=== PATIENT | male | born 2000 | race Caucasian/White ===

== ENCOUNTER 2024-07-21 09:26 | Outpatient (CLI) | payer OTHER, SELFPAY ==
[2024-07-21 18:48] LABS: Basophils # 0.1 K/mm3 (0-0.2); Eosinophils # 0.2 K/mm3 (0.0-0.4); Eosinophils % 2.9 % (0.1-12.0); Hematocrit 49.3 % (42.0-52.0); Hemoglobin 16.6 g/dL (14.1-18.0); Lymphocytes # 2.5 K/mm3 (0.7-4.5); Lymphocytes % 33.9 % (10-50); Mean Corpuscular HGB Conc 33.8 g/dL (31.8-35.4); Mean Corpuscular Hemoglobin 32.3 pg (27.0-31.2); Mean Corpuscular Volume 95.5 fl (80-94); Mean Platelet Volume 8.6 fl (7.4-10.4); Monocytes # 0.5 K/mm3 (0.1-1.0); Monocytes % 6.3 % (1.7-9.3); Neutrophils # 4.1 K/mm3 (1.8-7.8); Neutrophils % 55.9 % (37.0-80.0); Platelet Count 377 K/mm3 (142-424); Red Blood Count 5.16 M/mm3 (4.60-6.20); Red Cell Distribution Width 13.2 % (11.5-17.5); White Blood Count 7.4 K/mm3 (4.8-10.8)
[2024-07-21 19:26] LABS: Hemoglobin A1C 4.8 % (4.0-6.0)
[2024-07-21 20:20] LABS: Alanine Aminotransferase 33 U/L (12-78); Albumin Level 4.3 g/dl (3.5-5.0); Albumin/Globulin Ratio 1.7 (1.1-1.8); Alkaline Phosphatase 57 U/L (38-126); Anion Gap 13.4 mEq/L (5-15); Aspartate Amino Transferase 37 U/L (17-59); Bilirubin,Total 0.7 mg/dl (0.2-1.3); Blood Urea Nitrogen 12 mg/dl (9-20); Calcium 9.5 mg/dl (8.4-10.2); Carbon Dioxide 23 mmol/L (22.0-30.0); Chloride 106 mmol/L (98-107); Chol/HDL Ratio 3.4 (1-3.5); Cholesterol 195 mg/dl (140-200); Estimated Glomerular Filt Rate 81 ml/min (>60); GFR (African American) 98 ML/MIN (>60); Globulin 2.6 g/dL (1.3-3.2); Glucose 85 mg/dl (74-100); HDL Cholesterol 58 mg/dl (40-60); Potassium 4.4 mmoL/L (3.5-5.1); Sodium 138 mmol/L (136-145); Total Protein,Serum 6.9 g/dl (6.3-8.2); Triglycerides 114 mg/dl (30-150); VLDL Cholesterol 23 mg/dL (0-40)
[2024-07-21 20:32] LABS: Direct LDL Cholesterol 105.31 mg/dL (100-129)
[2024-07-21 20:33] LABS: 25-OH Vitamin D, Total 25.2 ng/mL (30-100)
[2024-07-21 20:53] LABS: Thyroid Stimulating Hormone 1.14 uIU/mL (0.465-4.68)
[2024-07-21 20:57] LABS: Microalbumin/Creatinine Ratio 4.7
[2024-07-21 21:02] LABS: Creatinine,Urine Random 146 mg/dL (Not Estab.)
[2024-07-21 21:12] LABS: Vitamin B12 759 pg/mL (239-931)
== END 2024-07-21 23:59 | disposition home or self-care (01) ==
LOC: LAB.DROPOF 07-22 10:46
PROVIDERS: PCP Nurse Practitioner; Visit Provider Nurse Practitioner
DX: I10 Essential (primary) hypertension (principal); Z13.1 Encounter for screening for diabetes mellitus; Z13.220 Encounter for screening for lipoid disorders
CPT/HCPCS: 80050; 80053; 80061; 82043; 82306; 82570; 82607; 83036; 84443; 85025

== ENCOUNTER → 2024-08-10 06:35 | Outpatient (CLI) | payer OTHER, SELFPAY | LOC: SL 06:36 | PROVIDERS: PCP Nurse Practitioner; Visit Provider Nurse Practitioner | DX: R06.83 Snoring (principal); R51.9 Headache, unspecified; R03.0 Elevated blood-pressure reading, without diagnosis of hypertension; R40.0 Somnolence; R06.81 Apnea, not elsewhere classified | CPT/HCPCS: G0399 ==

== ENCOUNTER → 2024-08-25 20:23 | Outpatient (CLI) | payer OTHER, SELFPAY | LOC: SL 20:25 | PROVIDERS: PCP Nurse Practitioner; Visit Provider Nurse Practitioner | DX: G47.33 Obstructive sleep apnea (adult) (pediatric) (principal); R06.83 Snoring; R40.0 Somnolence | CPT/HCPCS: 95810 ==

== ENCOUNTER 2024-09-28 07:46 | Outpatient (CLI) | payer OTHER, SELFPAY ==
[2024-09-28 08:35] VITALS: PULSE 81; PULSE 84
[2024-09-28] MEDS: ALBUTEROL 0.083% 2.5 MG/3 ML NEB IH (08:35)
== END 2024-09-28 23:59 | disposition home or self-care (01) ==
PROVIDERS: PCP Nurse Practitioner; Visit Provider Specialist
DX: R06.81 Apnea, not elsewhere classified (principal); G47.9 Sleep disorder, unspecified; R40.0 Somnolence; I10 Essential (primary) hypertension
CPT/HCPCS: 94060; 94640; 94726; 94729; J7613

== ENCOUNTER 2024-11-23 16:32 | Outpatient (CLI) | payer OTHER, SELFPAY ==
[2024-11-23 20:14] LABS: 25-OH Vitamin D, Total 58.4 ng/mL (30-100)
--- OUTSIDE RECORDS SUMMARY | 2024-11-24 14:43 | XMS_ITS | Continuity of Care Document ---
Author Name [facility] Organization [facility] Care Team Providers Care District Director Name Role Phone [facility] Unavailable Unavailable Immunizations Combined list of available immunizations from the Department of Defense and Veterans Affairs facilities. Immunization Series Date Given Administered By Site Reaction Lot Number CVX Code Drug Cushion Former Status Comments Source influenza, injectable, quadrivalent- pf 2017 [id number] GlaxoSmith[employer]li ne complet ed influenza , injectabl e, quadrival ent-pf 06/05/18 Given Ambulat ory Pharmac y influenza, injectable, quadrivalent- pf 2017 zzRig ht Arm [id number] 150 GlaxoSmithKli ne complet ed influenza , injectabl e, quadrival ent-pf 06/05/18 Given Ambulat ory Pharmac y hepatitis B pediatric/ado lescent 2017 [id number] GlaxoSmithKli ne complet ed hepatitis B pediatric /adolesce nt 10/11/17 Given Ambulat ory Pharmac y hepatitis B pediatric/ado lescent 2017 [id number] GlaxoSmithKli ne complet ed hepatitis B pediatric /adolesce nt 10/11/17 Given Ambulat ory Pharmac y influenza, injectable, quadrivalent- pf 2016 [id number] 150 GlaxoSmithKli ne complet ed influenza , injectabl e, quadrival ent-pf 06/14/17 Given Ambulat ory Pharmac y influenza, injectable, quadrivalent- pf 2016 [id number] 150 GlaxoSmithKli ne complet ed influenza , injectabl e, quadrival ent-pf 06/14/17 Given Ambulat ory Pharmac y Hep A, ped/adol, 2 dose 2016 [id number] GlaxoSmithKli ne complet ed Hep A, ped/adol, 2 dose 05/07/17 Given Ambulat ory Pharmac y hepatitis B pediatric/ado lescent 2016 [id number] GlaxoSmithKli ne complet ed hepatitis B pediatric /adolesce nt 05/07/17 Given Ambulat ory Pharmac y Hep A, ped/adol, 2 dose 2016 [id number] GlaxoSmithKli ne complet ed Hep A, ped/adol, 2 dose 05/07/17 Given Ambulat ory Pharmac y hepatitis B pediatric/ado lescent 2016 [id number] GlaxoSmithKli ne complet ed hepatitis B pediatric /adolesce nt 05/07/17 Given Ambulat ory Pharmac y hepatitis B pediatric/ado lescent 2015 [id number] 08 GlaxoSmithKli ne complet ed hepatitis B pediatric /adolesce nt 07/19/16 Given Ambulat ory Pharmac y Hep A, ped/adol, 2 dose 2015 [id number] GlaxoSmithKli ne complet ed Hep A, ped/adol, 2 dose 07/19/16 Given Ambulat ory Pharmac y poliovirus vaccine, inactivated 2015 [id number] sanofi pasteur complet ed polioviru s vaccine, inactivat ed 07/19/16 Given Ambulat ory Pharmac y poliovirus vaccine, inactivated 2015 zzRig ht Thigh [id number] 10 sanofi pasteur complet ed polioviru s vaccine, inactivat ed 07/19/16 Given Ambulat ory Pharmac y Hep A, ped/adol, 2 dose 2015 zzRig ht Thigh [id number] 83 GlaxoSmithKli ne complet ed Hep A, ped/adol, 2 dose 07/19/16 Given Ambulat ory Pharmac y hepatitis B pediatric/ado lescent 2015 zzRig ht Thigh [id number] 08 GlaxoSmithKli ne complet ed hepatitis B pediatric /adolesce nt 07/19/16 Given Ambulat ory Pharmac y influenza, seasonal, injectable-pf 2015 [id number] Seqirus complet ed influenza , seasonal, injectabl e-pf 06/15/16 Given Ambulat ory Pharmac y adenovirus vaccine, live 2015 [id number] 143 [employer]eva [employer] ls complet ed adenoviru s vaccine, live 06/15/16 Given Ambulat ory Pharmac y meningococcal oligosacchari de (MCV4O) 2015 [id number] sanofi pasteur complet ed meningoco ccal oligosacc haride (MCV4O) 06/15/16 Given Ambulat ory Pharmac y tetanus, diphtheria, acellular pertu is 2015 [id number] 115 GlaxoSmithKli ne complet ed tetanus, diphtheri a, acellular pertussis 06/15/16 Given Ambulat ory Pharmac y adenovirus vaccine, live 2015 [id number] 1 143 Teva [employer] ls complet ed adenoviru s vaccine, live 06/15/16 Given Ambulat ory Pharmac y meningococcal oligosacchari de (MCV4O) 2015 zzRig ht Arm [id number] 136 sanofi pasteur complet ed meningoco ccal oligosacc haride (MCV4O) 06/15/16 Given Ambulat ory Pharmac y influenza, seasonal, injectable-pf 2015 zzLef t Arm [id number] 140 Seqirus complet ed influenza , seasonal, injectabl e-pf 06/15/16 Given Ambulat ory Pharmac y tetanus, diphtheria, acellular pertu is 2015 zzLef t Arm [id number] 115 GlaxoSmithKli ne complet ed tetanus, diphtheri a, acellular pertussis 06/15/16 Given Ambulat ory Pharmac y tuberculin purified protein derivative 2015 zzLef t Arm [id number] 96 sanofi pasteur complet ed tuberculi n purified protein derivativ e 06/15/16 Given Ambulat ory Pharmac y Procedures Combined list of: 1) Procedures from Department of Veterans Affairs facilities going back up to thelast 18 months, not all VA non-surgical procedures are included; 2) All procedures from the Department of Defense facilities. Procedure Procedure Type Code Date Perfomer Comments Sourc e No data available for this section Ambulatory P harmacy Social History Combined list of available smoking, tobacco, and other social history from Department of Defense and Veterans Affairs facilities. Social History Type Response Date Comment Sourc e Sex Representation Male (finding) 03/25/2020 Un known Organization Sexual Orientation Ambula tory Pharmacy Gender identity Ambulator y Pharmacy Assessment and Plan Combined list of future care activities from Department of Defense and Veterans Affairs facilities (e.g., assessment and plan notes, appointments, orders, and referrals). Additional future care activities may be listed in the Plan of Care section. Result Assessment and Plan Date Source Assessment and Plan No data available for this section 11/24/2024 Ambulatory Pharmacy Functional Status Combined list of recent functional and cognitive assessments recorded at [facility] Defense and [facility] ([facility] Functional [place] Measurement (FIM) Scale: 1 = Total Assistance (Subject = 0% +), 2 = Maximal Assistance (Subject = 25% +), 3 = Moderate Assistance (Subject = 50% +), 4 = Minimal Assistance (Subject = 75% +), 5 = Supervision, 6 = Modified [place] (Device), 7 = Complete [place] (Timely, Safely). Assessment Date/Time Source Assessment Type Assessment Skill Assessment Score Assessment Details No data available for this section
== END 2024-11-23 23:59 | disposition home or self-care (01) ==
LOC: LAB.DROPOF 11-24 14:42
PROVIDERS: PCP Nurse Practitioner; Visit Provider Nurse Practitioner
DX: E55.9 Vitamin D deficiency, unspecified (principal)
CPT/HCPCS: 82306

== ENCOUNTER 2024-12-09 12:21 | Outpatient (CLI) | payer OTHER, SELFPAY ==
--- NOTE | 2024-12-09 12:23 | XR_ITS ---
FINAL REPORT TECHNIQUE: Chest PA & Lateral CLINICAL HISTORY: HSAT and PSG showed nocturnal hypoxemia COMPARISON: None FINDINGS: 2 views of the chest were performed. The heart size is normal. The mediastinum is within normal limits. There is no acute cardiopulmonary process. There are no pleural effusions. There is no pneumothorax. The bony thorax appears intact. IMPRESSION: No acute cardiopulmonary process. Reviewed, Interpreted and Dictated by Aguilar Núñez MD Transcribed by Na Espinoza Authenticated and [facility]
--- OUTSIDE RECORDS SUMMARY | 2024-12-09 12:23 | XMS_ITS | Continuity of Care Document ---
Author Name [facility] Organization [facility] Care Team Providers Care Handwriting Expert Name Role Phone [facility]OD-[facility] Unavailable Unavailable Problems Combined list of problems from Department of Defense and Veterans Affairs facilities. It does not include entries that were removed or entered in error. 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 It does not include entries that were removed or entered in error. Substance Category Reaction Severity Reaction type Status Date Reported Comments Source No Known Allergies Drug allergy (disorder) active 01/26/2020 [facility] Immunizations Combined list of available immunizations from the Department of Defense and Veterans Affairs facilities. Immunization Series Date Given Administered By Site Reaction Lot Number CVX Code Drug Nurse Prn Status Comments Source influenza, injectable, quadrivalent- pf 2017 [id number] 150 GlaxoSmithKli ne complet ed influenza , injectabl e, quadrival ent-pf 06/05/18 Given Ambulat ory Pharmac y influenza, injectable, quadrivalent- pf 2017 zzRig ht Arm [id number] 150 GlaxoSmithKli ne complet ed influenza , injectabl e, quadrival ent-pf 06/05/18 Given Ambulat ory Pharmac y Influenza, injectable, quadrivalent, preservative free 1 2017 UGO ARREAGA [id number] 150 SmithKline (SKB) complet ed Influenza , injectabl e, quadrival ent, preservat mike free [facility] hepatitis B pediatric/ado lescent 2017 [id number] 08 GlaxoSmithKli ne complet ed hepatitis B pediatric /adolesce nt 10/11/17 Given Ambulat ory Pharmac y hepatitis B pediatric/ado lescent 2017 [id number] 08 GlaxoSmithKli ne complet ed hepatitis B pediatric /adolesce nt 10/11/17 Given Ambulat ory Pharmac y hepatitis B vaccine, pediatric or pediatric/ado lescent dosage 3 2017 [id number] 08 JaspreetKline (SKB) complet ed hepatitis B vaccine, pediatric or pediatric /adolesce nt dosage DoD influenza, injectable, quadrivalent- pf 2016 [id number] 150 GlaxoSmithKli ne complet ed influenza , injectabl e, quadrival ent-pf 06/14/17 Given Ambulat ory Pharmac y influenza, injectable, quadrivalent- pf 2016 [id number] 150 GlaxoSmithKli ne complet ed influenza , injectabl e, quadrival ent-pf 06/14/17 Given Ambulat ory Pharmac y Influenza, injectable, quadrivalent, preservative free 0 2016 [id number] 150 SmithKline (SKB) complet ed Influenza , injectabl e, quadrival ent, preservat mike free DoD Hep A, ped/adol, 2 dose 2016 [id number] [...] Given Ambulat ory Pharmac y hepatitis B vaccine, pediatric or pediatric/ado lescent dosage 2 2016 [id number] 08 SmithKline (SKScar) complet ed hepatitis B vaccine, pediatric or pediatric /adolesce nt dosage DoD hepatitis A vaccine, pediatric/ado lescent dosage, 2 dose schedule 2 2016 [id number] 83 SmithKline (SK) complet ed hepatitis A vaccine, pediatric /adolesce nt dosage, 2 dose schedule DoD varicella virus vaccine 0 2016 21 () Not Given varicella virus vaccine DoD measles and rubella virus vaccine 0 2015 04 () Not Given measles and rubella virus vaccine DoD varicella virus vaccine 0 2015 21 () Not Given varicella virus vaccine DoD hepatitis B pediatric/ado lescent 2015 [id number] 08 GlaxoSmithKli ne complet ed hepatitis B pediatric /adolesce nt 07/19/16 Given Ambulat ory Pharmac y Hep A, ped/adol, 2 dose 2015 [id number] 83 GlaxoSmithKli ne complet ed Hep A, ped/adol, 2 dose 07/19/16 Given Ambulat ory Pharmac y poliovirus vaccine, inactivated 2015 [id number] 10 sanofi pasteur complet ed polioviru s vaccine, inactivat ed 07/19/16 Given Ambulat ory Pharmac y poliovirus vaccine, inactivated 2015 zzRig ht Thigh [id number] 10 sanofi pasteur complet ed polioviru s [...] nt 07/19/16 Given Ambulat ory Pharmac y hepatitis B vaccine, pediatric or pediatric/ado lescent dosage 1 2015 MIK DEL CASTILLO [id number] 08 SmithKline (SKB) complet ed hepatitis B vaccine, pediatric or pediatric /adolesce nt dosage DoD poliovirus vaccine, inactivated 1 2015 MIK DEL CASTILLO [id number] 10 Sanofi Pasteur (PMC) complet ed polioviru s vaccine, inactivat ed DoD hepatitis A vaccine, pediatric/ado lescent dosage, 2 dose schedule 1 2015 MIK DEL CASTILLO [id number] 83 SmithKline (SKB) complet ed hepatitis A vaccine, pediatric /adolesce nt dosage, 2 dose schedule DoD influenza, seasonal, injectable-pf 2015 [id number] 140 Seqirus complet ed influenza , seasonal, injectabl e-pf 06/15/16 Given Ambulat ory Pharmac y adenovirus vaccine, live 2015 [id number] 1 143 Teva Pharmaceutica ls complet ed adenoviru s vaccine, live 06/15/16 Given Ambulat ory Pharmac y meningococcal oligosacchari de (MCV4O) 2015 [id number] 136 sanofi pasteur complet ed meningoco ccal oligosacc haride (MCV4O) 06/15/16 Given Ambulat ory Pharmac y tetanus, diphtheria, acellular pertu is 2015 [id number] 115 GlaxoSmithKli ne complet ed tetanus, diphtheri a, acellular pertussis 06/15/16 Given Ambulat ory Pharmac y adenovirus vaccine, live 2015 [id number] 1 143 Teva Pharmaceutica ls complet ed adenoviru s vaccine, live 06/15/16 Given Ambulat ory Pharmac y meningococcal oligosacchari de (MCV4O) 2015 zzRig ht Arm [id number] 136 sanofi pasteur complet ed meningoco ccal oligosacc haride (MCV4O) 06/15/16 Given Ambulat ory Pharmac y influenza, seasonal, injectable-pf 2015 zzLef t Arm [id number] 140 Seqirus complet ed influenza , seasonal, injectabl e-pf 06/15/16 Given Ambulat ory Pharmac y tetanus, diphtheria, acellular pertu is 2015 zzLef t Arm G522H 115 GlaxoSmithKli ne complet ed tetanus, diphtheri a, acellular pertussis 06/15/16 Given Ambulat ory Pharmac y tuberculin purified protein derivative 2015 zzLef t Arm [id number] 96 sanofi pasteur complet ed tuberculi n purified protein derivativ e 06/15/16 Given Ambulat ory Pharmac y tuberculin skin test; purified protein derivative solution, intradermal 1 2015 Unknown, Provider [id number] 96 Sanofi Pasteur (PMC) complet ed tuberculi n skin test; purified protein derivativ e solution, intraderm al DoD tetanus toxoid, reduced diphtheria toxoid, and acellular pertu is vaccine, adsorbed 1 2015 Unknown, Provider [id number] 115 [facility] (SKB) complet ed tetanus toxoid, reduced diphtheri a toxoid, and acellular pertussis vaccine, adsorbed DoD meningococcal oligosacchari de (groups A, C, Y and W-135) diphtheria toxoid conjugate vaccine (MCV4O) 1 2015 Unknown, Provider [id number] 136 Sanofi Pasteur (PMC) complet ed meningoco ccal oligosacc haride (groups A, C, Y and W-135) diphtheri a toxoid conjugate vaccine (MCV4O) DoD Influenza, seasonal, injectable, preservative free 1 2015 Unknown, Provider [id number] 140 Seqirus (SEQ) complet ed Influenza , seasonal, injectabl e, preservat mike free DoD Adenovirus, type 4 and type 7, live, oral 1 2015 Unknown, Provider [id number] 143 FilmLoop (BRR) complet ed Adenoviru s, type 4 and type 7, live, oral DoD Encounters Combined list of: 1) Encounters from Department of Veterans Affairs facilities going backup to the last 18 months, not all VA inpatient encounters are included; 2) Encounters from the Department of Defense facilities going backup to 280 months. Location Location Details Encounter Type Encounter Number Reason For Visit Attending Provider ADM Date DC Date Status Disposition Source [facility] Rosalina simon[facility] OUTPATIENT [id number] PAPITO SYED 06/13 Released w/o Limitations [facility] Luiz frank([facility] Optomet ry Clinic) [facility] Rosalina simon[facility] Hearing Conservat ion) OUTPATIENT [id number] [employer] 06/13 Released w/o Limitations [facility] Luiz frank([facility] Hearing Conserv ation) [facility] Rosalina simon[facility] Recruit Medical Process) OUTPATIENT [id number] INITIAL INPROCE SAMMY CASTRO 06/18 Released w/o Limitations [facility] Luiz frank([facility] Rec[facility] Medical Process ) [facility] Rosalina n([facility] Med Dispo) OUTPATIENT [id number] Notes Entered by: SANGITA BILLS RA 21 Jun 2016 0903 ------- ------- ------- ------- -- CTT/BUM ED WAIVER REQUEST SHRUTHI ARZOLA 06/21 Released with Work/Duty Limitations [facility] Luiz frank([facility] Med Dispo) [facility] Rosalina simon([facility] Med Dispo) OUTPATIENT [id number] Notes Entered by: SANGITA BILLS RA 29 Jun 2016 1435 ------- ------- ------- ------- -- SHRUTHI OSWALD 06/29 Released w/o Limitations [facility] Luiz frank([facility] Med Dispo) [facility] Rosalina simon([facility] Recruit Medical Process) OUTPATIENT [id number] 2ND VISIT FOR INPROCE TAMMY SHOEMAKER 07/19 Released w/o Limitations [facility] Luiz frank([facility] Rec[employer] Medical Process ) [facility](13 [facility]) OUTPATIENT [id number] Notes Entered by: BLAINE GARCIA 06 May 2017 1329 ------- ------- ------- ------- -- New check in SIMONE Sher 05/06 Released w/o Limitations [facility](1 3 ABC [facility]) [facility](13 ABC Hearing Conservat ion) OUTPATIENT [id number] ANNUAL MALIHA LYONS 07/02 Released w/o Limitations [facility](1 3 ABC Hearing Conserv ation) [facility](13 ABC [facility]) OUTPATIENT [id number] Notes Entered by: GARY OLIVARES 16 Jul 2017 0957 ------- ------- ------- ------- -- SHRUTHI BOONE 07/16 Released w/o Limitations [facility](1 3 ABC [facility]) [facility](CP Optometry ) OUTPATIENT [id number] [facility] DILCIA COLEY 01/28 Released w/o Limitations [facility](C P Optomet ry) [facility](13 ABC FP MHP Green Team) OUTPATIENT [id number] Notes Entered by: ANNIE TORRES 03 Feb 2018 0936 ------- ------- ------- ------- -- EVOC EKG ANNIE TORRESEL 02/03 Released w/o Limitations [facility](1 3 ABC FP MHP Green Team) [facility](CP Optometry ) OUTPATIENT [id number] spec dispens e VICKIE VIRGEN Luz Marina 02/07 Released w/o Limitations [facility](C P Optomet ry) [facility](13 ABC FP MHP Green Team) OUTPATIENT [id number] EVOC KATELYNN Churchill 02/14 Released w/o Limitations [facility](1 3 ABC FP MHP Green Team) [facility](CP Comm Imms/Flu Clinic) OUTPATIENT [id number] 5 flu vac UGO ARREAGA Cammy 06/06 Released w/o Limitations [facility](C P Comm Imms/Fl u Clinic) [facility](13 ABC FP MHP Green Team) OUTPATIENT [id number] 3 POSSBLE CONTACT WITH KATELYNN MOELLER 07/28 Released w/o Limitations [facility](1 3 ABC FP MHP Green Team) [facility](13 ABC FP MHP Green Team) TELE CONSULT [id number] Notes Entered by: TANNA NASH 23 Sep 2018 1440 ------- ------- ------- ------- -- PHA FAZAL REY 09/23 [facility](1 3 ABC FP MHP Green Team) [facility](13 ABC Hearing Conservat ion) OUTPATIENT [id number] ANNUAL MALIHA LYONS 10/14 Released w/o Limitations [facility](1 3 ABC Hearing Conserv ation) [facility](13 ABC Smart/Spo rts Medicine) OUTPATIENT [id number] Notes Entered by: Jose Raul LANDA 25 Mar 2019 0806 ------- ------- ------- ------- -- ipu/1st visit/ right ankle/ 13 NNEKA Santamaria 03/25 Released w/o Limitations [facility](1 3 ABC Smart/S ports Medicin e) [facility](13 ABC Smart/Spo rts Medicine) OUTPATIENT [id number] Notes Entered by: MARCO ALLISON 26 Mar 2019 0810 ------- ------- ------- ------- -- ipu/ second visit/ r / SOPHIE Kay 03/26 Released w/o Limitations [facility](1 3 ABC Smart/S ports Medicin e) [facility](CP Optometry ) OUTPATIENT [id number] 3 ree [phone] DILCIA COLEY 01/25 Released w/o Limitations [facility](C P Optomet ry) [facility](13 ABC FP MHP Green Team) TELE CONSULT [id number] Notes Entered by: JAMEL SIMONS 18 Feb 2020 1056 ------- ------- ------- ------- -- HIV JAMEL SIMONS 02/17 Released to Self Care [facility](1 3 ABC FP MHP Green Team) [facility](13 ABC Hearing Conservat ion) OUTPATIENT [id number] MALIHA PHILIP 02/23 Released w/o Limitations [facility](1 3 ABC Hearing Conserv ation) [facility](13 ABC FP MHP Green Team) OUTPATIENT [id number] 7 VIRTUAL FINAL BECCA YADAV 02/23 Released w/o Limitations [facility](1 3 ABC FP MHP Green Team) Procedures Combined list of: 1) Procedures from Department of Veterans Affairs facilities going back up to thelast 18 months, not all VA non-surgical procedures are included; 2) All procedures from the Department of Defense facilities. Procedure Procedure Type Code Date Perfomer Comments Sourc e No data available for this section [facility] Pharmacy IMMUNIZATION ADMINISTRATION (INCLUDES PERCUTANEOUS, INTRADERMAL, SUBCUTANEOUS, OR INTRAMUSCULAR INJECTIONS); EACH ADDITIONAL VACCINE (SINGLE OR COMBINATION VACCINE/TOXOID) 016 [facility] COLLECTION OF VENOUS BLOOD BY VENIPUNCTURE 016 [facility] PHYS/OTH QUALIFIED HEALTH FOOD BEVERAGE ATTENDANT QUALIFIED,EDUCATION ,TRAIN,LICENSURE/RE GULATION (WHEN APPLICABLE) EDUC SER RENDERED TO PATS IN A GRP SETTING (EG,,OBESIT Y,OR DIABETIC INSTRUCT) 016 DoD FITTING OF SPECTACLES, EXCEPT FOR APHAKIA; MONOFOCAL 016 DoD WAIVER SERVICES; NOT OTHERWISE SPECIFIED (NOS) DoD PURE TONE AUDIOMETRY (THRESHOLD), AUTOMATED; AIR ONLY DoD FITTING OF SPECTACLES, EXCEPT FOR APHAKIA; MONOFOCAL 020 DoD APPLICATION OF A MODALITY TO 1 OR MORE AREAS; HOT OR COLD PACKS 019 DoD APPLICATION OF A MODALITY TO 1 OR MORE AREAS; HOT OR COLD PACKS 019 DoD PURE TONE AUDIOMETRY (THRESHOLD), AUTOMATED; AIR ONLY 019 DoD IMMUNIZATION ADMINISTRATION (INCLUDES PERCUTANEOUS, INTRADERMAL, SUBCUTANEOUS, OR INTRAMUSCULAR INJECTIONS); 1 VACCINE (SINGLE OR COMBINATION VACCINE/TOXOID) DoD FITTING OF SPECTACLES, EXCEPT FOR APHAKIA; MONOFOCAL 018 DoD FITTING OF SPECTACLES, EXCEPT FOR APHAKIA; MONOFOCAL 018 DoD ADMINISTRATION OF PATIENT-FOCUSED HEALTH RISK ASSESSMENT INSTRUMENT (EG, HEALTH HAZARD APPRAISAL) WITH SCORING AND DOCUMENTATION, PER STANDARDIZED INSTRUMENT 017 DoD PURE TONE AUDIOMETRY (THRESHOLD), AUTOMATED; AIR ONLY 017 DoD Threshold Audiogram (Pure Tone) Automated Threshold Audiogram (Pure Tone) Automated [id number] 019 MALIHA LYONS [facility] Patient education, not otherwise cla ified, non-physician provider, group, per se ion 019 MALIHA LYONS DoD Immunization Administration One Vaccine Immunization Administration One Vaccine 11378 018 UGO ARREAGA DoD Spectacles Services Fitting Monofocals (Not For Aphakia) Spectacles Services Fitting Monofocals (Not For Aphakia) 95186 018 VICKIE VIRGEN DoD [employer] Fitting Monofocals (Not For Aphakia) Spectacles Services Fitting Monofocals (Not For Aphakia) 97233 018 COLETTDILCIA OVALLE Determination Of Refractive State Determination Of Refractive State 85000 018 JHON NEAL, DILCIA Burleson Ophthalmological New Patient Start Comprehensive Care Ophthalmological New Patient Start Comprehensive Care 53401 018 JHON NEAL, DILCIA Burleson Threshold Audiogram (Pure Tone) Automated Threshold Audiogram (Pure Tone) Automated 0208T MALIHA LYONS Patient education, not otherwise cla ified, non-physician provider, group, per se ion 017 MALIHA LYONS Hepatitis B Vaccine (Active); To 11 Years Hepatitis B Vaccine (Active); [place] To 11 Years 73342 MIK CABAN Hep B, adolescent or pediatric; Series #: 1; .5 mL; IM; Right Thigh; Mfg: SmithKline; Lot: [id number]. [facility] Vaccines Viral Polio, Inactivated (Salk) Vaccines Viral Polio, Inactivated (Salk) 16232 016 MIK CABAN IPV; Series #: 1; .5 mL; IM; Right Thigh; Mfg: Sanofi Pasteur; Lot: [id number]. [facility] Hep A Vac Ped/Adol Dosage (Intramusc Use) 2 Dose Schedule Hep A Vac Ped/Adol Dosage (Intramusc Use) 2 Dose Schedule 30587 CRISTIN CABANA [facility] Hep A ped/adol, 2 dose; Series #: 1; .5 mL; IM; Right Thigh; Mfg: SmithCataceline; Lot: [id number]. [facility] Immunization Administration One Vaccine Immunization Administration One Vaccine 95736 MIK CABAN [facility] Immunization Administration Each Additional Vaccine Immunization Administration Each Additional Vaccine 67278 MIK CABAN [facility] Venipuncture Venipuncture [address] Supervised Injection Intramuscular Antibiotic Supervised Injection Intramuscular Antibiotic 30818 CORIE GONZALEZ Influenza Split Virus Vacc Age 3+ Years IM Preservative Free CORIE GONZALEZ Immunization Admin Intranasal / Oral Each Additional Vaccine Immunization Admin Intranasal / Oral Each Additional Vaccine 05201 016 CORIE MAGANA [facility] Vaccines Adenovirus Type 4 Live, For Oral Use Vaccines Adenovirus Type 4 Live, For Oral Use 31690 016 CORIE MAGANA Vaccines Adenovirus Type 7 Live, For Oral Use Vaccines Adenovirus Type 7 Live, For Oral Use 62793 016 CORIE MAGANA [facility] Tdap Vaccine Tdap Vaccine 87367 CORIE MAGANA [facility] Immunization Administration One Vaccine Immunization Administration One Vaccine 98396 CORIE MAGANA [facility] Immunization Admin By Intranasal / Oral Route One Vaccine Immunization Admin By Intranasal / Oral Route One Vaccine 63745 CORIE MAGANA [facility] Immunization Administration Each Additional Vaccine Immunization Administration Each Additional Vaccine 69536 CORIE MAGANA [facility] Skin Test Anergy Tuberculin Intradermal Skin Test Anergy Tuberculin Intradermal 08387 CORIE MAGANA [facility] -Supervised Group Educational Services -Supervised Group Educational Services [phone] [employer] [facility] Audiometry Group Testing Audiometry Group Testing 56451 [employer] [facility] Spectacles Services Fitting Monofocals (Not For Aphakia) Spectacles Services Fitting Monofocals (Not For Aphakia) 34954 016 [facility] Ophthalmological New Patient Start Comprehensive Care Ophthalmological New Patient Start Comprehensive Care [phone] [facility] Determination Of Refractive State Determination Of Refractive State [phone] [facility] Physical Therapy: ___ Se ion Segments, 15 Minutes Each Physical Therapy: ___ Session Segments, 15 Minutes Each 50630 NNEKA BARBOSA Therex x 30 min to R ankle. [facility] Physical Therapy Mobilization Joint Physical Therapy Mobilization Joint 26980 NNEKA BARBOSA x 8 min Manual Lymphatic Drainage R ankle. [facility] Modalities Cryotherapy Cold Packs Modalities Cryotherapy Cold Packs 09903 NNEKA BARBOSA x 15 min to R ankle. [facility] Physical Therapy: ___ Se ion Segments, 15 Minutes Each Physical Therapy: ___ Session Segments, 15 Minutes Each 74869 SOPHIE ALCANTARA 35min DoD Modalities Cryotherapy Cold Packs Modalities Cryotherapy Cold Packs 04815 SOPHIE ALCANTARA 20 min DoD Ophthalmological Prior Patient Start Comprehensive Care Ophthalmological Prior Patient Start Comprehensive Care [address] [facility], DILCIA R [facility] Determination Of Refractive State Determination Of Refractive State [address]017 [facility], DILCIA R [facility] Spectacles Services Fitting Monofocals (Not For Aphakia) Spectacles Services Fitting Monofocals (Not For Aphakia) [address]262 [facility], DILCIA R [facility] Patient education, not otherwise cla ified, non-physician provider, group, per se ion MALIHA LYONS [facility] Threshold Audiogram (Pure Tone) Automated Threshold Audiogram (Pure Tone) Automated 0208T MALIHA LYONS [facility] Waiver services; not otherwise specified (NOS) BECCA HAYES [facility] Social History Combined list of available smoking, tobacco, and other social history from Department of Defense and Veterans Affairs facilities. Social History Type Response Date Comment Sour e Sex Representation Male (finding) 03/25/2020 Un known Organization Sexual Orientation Ambula tory Pharmacy Gender identity Ambulator y Pharmacy This section is an empty social history section. [facility] Assessment and Plan Combined list of future care activities from Department of Defense and Veterans Affairs facilities (e.g., assessment and plan notes, appointments, orders, and referrals). Additional future care activities may be listed in the Plan of Care section. Result Assessment and Plan Date Source Assessment and Plan No data available for this section 12/09/2024 Ambulatory Pharmacy Functional Status Combined list of recent functional and cognitive assessments recorded at Department of Defense and Veterans Affairs ([facility]).[facility] Functional Donley Measurement (FIM) Scale: 1 = Total Assistance (Subject = 0% +), 2 = Maximal Assistance (Subject = 25% +), 3 = Moderate Assistance (Subject = 50% +), 4 = Minimal Assistance (Subject = 75% +), 5 = Supervision, 6 = Modified Donley (Device), 7 = Complete Donley (Timely, Safely). Assessment Date/Time Source Assessment Type Assessment Skill Assessment Score Assessment Details No data available for this section
== END 2024-12-09 23:59 | disposition home or self-care (01) ==
LOC: RAD 12:22
PROVIDERS: PCP Nurse Practitioner; Visit Provider Specialist
DX: G47.9 Sleep disorder, unspecified (principal); G47.34 Idiopathic sleep related nonobstructive alveolar hypoventilation; R40.0 Somnolence; I10 Essential (primary) hypertension
CPT/HCPCS: 71046

== ENCOUNTER 2025-02-23 12:04 | Outpatient (CLI) | payer OTHER, SELFPAY ==
[2025-02-23 15:38] LABS: Alanine Aminotransferase 24 U/L (12-78); Albumin Level 4.5 g/dl (3.5-5.0); Albumin/Globulin Ratio 1.6 (1.1-1.8); Alkaline Phosphatase 54 U/L (38-126); Anion Gap 16.9 mEq/L (5-15); Aspartate Amino Transferase 47 U/L (17-59); Bilirubin,Total 0.8 mg/dl (0.2-1.3); Blood Urea Nitrogen 12 mg/dl (9-20); Calcium 9.7 mg/dl (8.4-10.2); Carbon Dioxide 23 mmol/L (22.0-30.0); Chloride 102 mmol/L (98-107); Creatinine,Serum 0.90 mg/dl (0.66-1.25); Estimated Glomerular Filt Rate 101 ml/min (>60); GFR (African American) 122 ML/MIN (>60); Globulin 2.9 g/dL (1.3-3.2); Glucose 125 mg/dl (74-100); Potassium 3.9 mmoL/L (3.5-5.1); Sodium 138 mmol/L (136-145); Total Protein,Serum 7.4 g/dl (6.3-8.2)
[2025-02-23 15:50] LABS: 25-OH Vitamin D, Total 76.2 ng/mL (30-100)
--- OUTSIDE RECORDS SUMMARY | 2025-02-24 10:27 | XMS_ITS | Continuity of Care Document ---
Author Name [facility] Organization [facility] Care Team Providers Care Child And Family Therapist Name Role Phone [facility] Unavailable Unavailable Problems Combined list of problems [...] Known Allergies Drug allergy (disorder) active 01/26/2020 [facility] Immunizations Combined list of available immunizations from the Department of Defense and Veterans Affairs facilities. Immunization Series Date Given Administered By Site Reaction Lot Number CVX Code Drug Tosser Status Comments Source influenza, injectable, quadrivalent- pf [...] injectabl e, quadrival ent, preservat mike free [facility] hepatitis B pediatric/ado lescent 2017 [id number] [...] ory Pharmac y poliovirus vaccine, inactivated 2015 [id number] 10 sanofi pasteur complet ed polioviru s vaccine, inactivat ed 07/19/16 Given Ambulat ory Pharmac y poliovirus vaccine, inactivated 2015 zzRig ht Thigh [id number] 10 sanofi pasteur complet ed polioviru s [...] vaccine, inactivated 1 2015 MIK DEL CASTILLO [id number] 10 Sanofi Pasteur (PMC) complet ed polioviru s vaccine, inactivat ed DoD hepatitis A vaccine, pediatric/ado lescent dosage, 2 dose schedule 1 2015 MIK DEL CASTILLO [id number] SmithKline (SKB) complet ed hepatitis A vaccine, pediatric /adolesce nt dosage, 2 dose schedule DoD influenza, seasonal, injectable-pf 2015 [id number] 140 Seqirus complet ed influenza , seasonal, injectabl e-pf 06/15/16 Given Ambulat ory Pharmac y adenovirus vaccine, live 2015 [id number] 1 143 Teva Pharmaceutica ls complet ed adenoviru s vaccine, live 06/15/16 Given Ambulat ory Pharmac y meningococcal oligosacchari de (MCV4O) 2015 [id number] 136 sanofi pasteur complet ed meningoco ccal oligosacc haride (MCV4O) 06/15/16 Given Ambulat ory Pharmac y tetanus, diphtheria, acellular pertu is 2015 [id number] 115 GlaxoSmithKli ne complet ed tetanus, diphtheri a, acellular pertussis 06/15/16 Given Ambulat ory Pharmac y adenovirus vaccine, live 2015 [id number] 1 143 Teva Pharmaceutica ls complet ed adenoviru s vaccine, live 06/15/16 Given Ambulat ory Pharmac y meningococcal oligosacchari de (MCV4O) 2015 zzRig ht Arm [id number] 136 sanofi pasteur complet ed meningoco ccal oligosacc haride (MCV4O) 06/15/16 Given Ambulat ory Pharmac y influenza, seasonal, injectable-pf 2015 zzLef t Arm [id number] 140 Seqirus complet ed influenza , seasonal, injectabl e-pf 06/15/16 Given Ambulat ory Pharmac y tetanus, diphtheria, acellular pertu is 2015 zzLef t Arm [id number] 115 GlaxoSmithKli ne complet ed tetanus, diphtheri a, acellular pertussis 06/15/16 Given Ambulat ory Pharmac y tuberculin purified protein derivative 2015 zzLef t Arm [id number] 96 sanofi pasteur complet ed tuberculi n purified protein derivativ e 06/15/16 Given Ambulat ory Pharmac y tuberculin skin test; purified protein derivative solution, intradermal 1 2015 Unknown, Provider [id number] 96 Sanofi Pasteur (PMC) complet ed tuberculi n skin test; purified protein derivativ e solution, intraderm al DoD tetanus toxoid, reduced diphtheria toxoid, and acellular pertu is vaccine, adsorbed 1 2015 Unknown, Provider [id number] 115 [facility] (SKB) complet ed tetanus toxoid, reduced diphtheri a toxoid, and acellular pertussis vaccine, adsorbed DoD meningococcal oligosacchari de (groups A, C, Y and W-135) diphtheria toxoid conjugate vaccine (MCV4O) 1 2015 Unknown, Provider [id number] 136 Sanofi Pasteur (PMC) complet ed meningoco ccal oligosacc haride (groups A, C, Y and W-135) diphtheri a toxoid conjugate vaccine (MCV4O) DoD Influenza, seasonal, injectable, preservative free 1 2015 Unknown, Provider [id number] 140 Seqirus (SEQ) complet ed Influenza , seasonal, injectabl e, preservat imke free DoD Adenovirus, type 4 and type 7, live, oral 1 2015 Unknown, Provider [id number] 143 [employer] (BRR) complet ed Adenoviru s, type 4 [...] ADM Date DC Date Status Disposition Source [facility] OUTPATIENT [id number] PAPITO SYED 06/13 Released w/o Limitations [facility] Luiz frank([facility] Optomet [facility]) [facility] OUTPATIENT [id number] [employer] 06/13 Released w/o Limitations [facility] Luiz frank([facility] D Hearing Conserv ation) [facility]ina [facility] Rec[facility] Medical Process) OUTPATIENT [id number] INITIAL INPROCE SAMMY CASTRO 06/18 Released w/o Limitations [facility] Luiz frank([facility] D Recruit Medical Process ) [facility] Rosalina n([facility] Med Dispo) OUTPATIENT [id number] Notes Entered by: SANGITA BILLS RA 21 Jun 2016 0903 ------- ------- ------- ------- -- CTT/BUM ED WAIVER REQUEST SHRUTHI ARZOLA 06/21 Released with Work/Duty Limitations [facility] Luiz frank([facility] D Med Dispo) [facility] Rosalina simon([facility] Med Dispo) OUTPATIENT [id number] Notes Entered by: SANGITA BILLS RA 29 Jun 2016 1435 ------- ------- ------- ------- -- SHRUTHI OSWALD 06/29 Released w/o Limitations [facility] Luiz frank([facility] Med Dispo) [facility] Rosalina simon([facility] Recruit Medical Process) OUTPATIENT [id number] 2ND VISIT FOR INPROCE TAMMY SHOEMAKER 07/19 Released w/o Limitations [facility] Luiz frank([facility] D Recruit Medical Process ) [facility](13 [facility]) OUTPATIENT [id number] Notes Entered by: BLAINE GARCIA 06 May 2017 1329 ------- ------- ------- ------- -- New check in SIMONE Sher 05/06 Released w/o Limitations [facility](1 3 ABC [facility]) [facility](13 ABC Hearing Conservat ion) OUTPATIENT [id number] ANNUAL MALIHA LYONS 07/02 Released w/o Limitations [facility](1 3 ABC Hearing Conserv ation) [facility](13 ABC [facility]) OUTPATIENT [id number] Notes Entered by: GARY OLIVARES 16 Jul 2017 0957 ------- ------- ------- ------- -- SHRUTHI BOONE 07/16 Released w/o Limitations [facility](1 3 ABC [facility]) [facility](CP Optometry ) OUTPATIENT [id number] [facility] DILCIA COLEY 01/28 Released w/o Limitations [facility](C P Optomet ry) [facility](13 ABC FP MHP Green Team) OUTPATIENT [id number] Notes Entered by: ANNIE TORRES 03 Feb 2018 0936 ------- ------- ------- ------- -- EVOC EKG ANNIE TORRESEL 02/03 Released w/o Limitations [facility](1 3 ABC FP MHP Green Team) [facility](CP Optometry ) OUTPATIENT [id number] spec dispens e VICKIE VIRGEN Luz Marina 02/07 Released w/o Limitations [facility](C P Optomet ry) [facility](13 ABC FP MHP Green Team) OUTPATIENT [id number] EVOC KATELYNN Churchill 02/14 Released w/o Limitations [facility](1 3 ABC FP MHP Green Team) [facility](CP Comm Imms/Flu Clinic) OUTPATIENT [id number] flu vac UGO ARREAGA Cammy 06/06 Released w/o Limitations [facility](C P Comm Imms/Fl u Clinic) [facility](13 ABC FP MHP Green Team) OUTPATIENT [id number] 3 POSSBLE CONTACT WITH KATELYNN MOELLER 07/28 Released w/o Limitations [facility](1 3 ABC FP MHP Green Team) [facility](13 ABC FP MHP Green Team) TELE CONSULT [id number] Notes Entered by: TANNA NASH 23 Sep 2018 1440 ------- ------- ------- ------- -- PHA FAZAL REY 09/23 [facility](1 3 ABC FP MHP Green Team) [facility](13 ABC Hearing Conservat ion) OUTPATIENT [id number] ANNUAL MALIHA LYONS 10/14 Released w/o Limitations [facility](1 3 ABC Hearing Conserv ation) [facility](13 ABC Smart/Spo rts Medicine) OUTPATIENT [id number] Notes Entered by: Jose Raul LANDA 25 Mar 2019 0806 ------- ------- ------- ------- -- ipu/1st visit/ right ankle/ 13 NNEKA Santamaria 03/25 Released w/o Limitations [facility](1 3 ABC Smart/S ports Medicin e) [facility](13 ABC Smart/Spo rts Medicine) OUTPATIENT [id number] Notes Entered by: MARCO ALLISON 26 Mar 2019 0810 ------- ------- ------- ------- -- ipu/ second visit/ r SOPHIE Kay 03/26 Released w/o Limitations [facility](1 3 ABC Smart/S ports Medicin e) [facility](CP Optometry ) OUTPATIENT [id number] ree [phone] DILCIA COLEY 01/25 Released w/o Limitations [facility](C P Optomet ry) [facility](13 ABC FP MHP Green Team) TELE CONSULT [id number] Notes Entered by: JAMEL SIMONS 18 Feb 2020 1056 ------- ------- ------- ------- -- HIV JAMEL SIMONS 02/17 Released to Self Care [facility](1 3 ABC FP MHP Green Team) [facility](13 ABC Hearing Conservat ion) OUTPATIENT [id number] MALIHA PHILIP 02/23 Released w/o Limitations [facility](1 3 ABC Hearing Conserv ation) [facility](13 ABC FP MHP Green Team) OUTPATIENT [id number] VIRTUAL FINAL BECCA YADAV 02/23 Released w/o Limitations [facility](1 3 ABC FP MHP Green Team) Procedures Combined list of: 1) Procedures from Department of Veterans Affairs facilities going back up to thelast 18 months, not all VA non-surgical procedures are included; 2) All procedures from the Department of Defense facilities. Procedure Procedure Type Code Date Perfomer Comments [facility] e IMMUNIZATION ADMINISTRATION (INCLUDES PERCUTANEOUS, INTRADERMAL, SUBCUTANEOUS, OR INTRAMUSCULAR INJECTIONS); EACH ADDITIONAL VACCINE (SINGLE OR COMBINATION VACCINE/TOXOID) 016 [facility] COLLECTION OF VENOUS BLOOD BY VENIPUNCTURE [facility] PHYS/OTH QUALIFIED HEALTH LAB ASST QUALIFIED,EDUCATION ,TRAIN,LICENSURE/RE GULATION (WHEN APPLICABLE) EDUC SER RENDERED TO PATS IN A GRP SETTING (EG,,OBESIT Y,OR DIABETIC INSTRUCT) DoD FITTING OF SPECTACLES, EXCEPT FOR APHAKIA; MONOFOCAL DoD WAIVER SERVICES; NOT OTHERWISE SPECIFIED (NOS) DoD PURE TONE AUDIOMETRY (THRESHOLD), AUTOMATED; AIR ONLY DoD FITTING OF SPECTACLES, EXCEPT FOR APHAKIA; MONOFOCAL DoD APPLICATION OF A MODALITY TO 1 OR MORE AREAS; HOT OR COLD PACKS DoD APPLICATION OF A MODALITY TO 1 OR MORE AREAS; HOT OR COLD PACKS DoD PURE TONE AUDIOMETRY (THRESHOLD), AUTOMATED; AIR ONLY 019 DoD IMMUNIZATION ADMINISTRATION (INCLUDES PERCUTANEOUS, INTRADERMAL, SUBCUTANEOUS, OR INTRAMUSCULAR INJECTIONS); 1 VACCINE (SINGLE OR COMBINATION VACCINE/TOXOID) DoD FITTING OF SPECTACLES, EXCEPT FOR APHAKIA; MONOFOCAL 018 DoD FITTING OF SPECTACLES, EXCEPT FOR APHAKIA; MONOFOCAL 018 DoD ADMINISTRATION OF PATIENT-FOCUSED HEALTH RISK ASSESSMENT INSTRUMENT (EG, HEALTH HAZARD APPRAISAL) WITH SCORING AND DOCUMENTATION, PER STANDARDIZED INSTRUMENT DoD PURE TONE AUDIOMETRY (THRESHOLD), AUTOMATED; AIR ONLY 017 DoD Threshold Audiogram (Pure Tone) Automated Threshold Audiogram (Pure Tone) Automated 0208T 019 MALIHA LYONS [facility] Patient education, not otherwise cla ified, non-physician provider, group, per se ion 019 MALIHA LYONS DoD Immunization Administration One Vaccine Immunization Administration One Vaccine 65412 018 UGO ARREAGA DoD Spectacles Services Fitting Monofocals (Not For Aphakia) Spectacles Services Fitting Monofocals (Not For Aphakia) [id number] 018 VICKIE VIRGEN DoD Spectacles Services Fitting Monofocals (Not For Aphakia) Spectacles Services Fitting Monofocals (Not For Aphakia) 16088 018 DILCIA COLEY DoD Determination Of Refractive State Determination Of Refractive State [phone] DILCIA COLEY Ophthalmological New Patient Start Comprehensive Care Ophthalmological New Patient Start Comprehensive Care [phone] DILCIA COLEY Threshold Audiogram (Pure Tone) Automated Threshold Audiogram (Pure Tone) Automated 0208T 017 MALIHA LYONS Patient education, not otherwise cla ified, non-physician provider, group, per se ion 017 MALIHA LYONS Hepatitis B Vaccine (Active); To 11 Years Hepatitis B Vaccine (Active); Cory To 11 Years 41167 016 MIK CABAN Hep B, adolescent or pediatric; Series #: 1; .5 mL; IM; Right Thigh; Mfg: SmithLernstiftine; Lot: [id number]. [facility] Vaccines Viral Polio, Inactivated (Salk) Vaccines Viral Polio, Inactivated (Salk) 83139 016 MIK CABAN IPV; Series #: 1; .5 mL; IM; Right Thigh; Mfg: Sanofi Pasteur; Lot: [id number]. [facility] Hep A Vac Ped/Adol Dosage (Intramusc Use) 2 Dose Schedule Hep A Vac Ped/Adol Dosage (Intramusc Use) 2 Dose Schedule 29082 MIK CABAN Hep A ped/adol, 2 dose; Series #: 1; .5 mL; IM; Right Thigh; Mfg: Qzzrine; Lot: [id number]. [facility] Immunization Administration One Vaccine Immunization Administration One Vaccine 93627 016 MIK CABAN [facility] Immunization Administration Each Additional Vaccine Immunization Administration Each Additional Vaccine 39977 MIK CABAN [facility] Venipuncture Venipuncture [address] Supervised Injection Intramuscular Antibiotic Supervised Injection Intramuscular Antibiotic 64217 OCRIE GONZALEZ Influenza Split Virus Vacc Age 3+ Years IM Preservative Free CORIE MAGANA Immunization Admin Intranasal / Oral Each Additional Vaccine Immunization Admin Intranasal / Oral Each Additional Vaccine 79731 CORIE MAGANA Vaccines Adenovirus Type 4 Live, For Oral Use Vaccines Adenovirus Type 4 Live, For Oral Use 09029 CORIE MAGANA Vaccines Adenovirus Type 7 Live, For Oral Use Vaccines Adenovirus Type 7 Live, For Oral Use 01056 CORIE MAGANA [facility] Tdap Vaccine Tdap Vaccine 01997 CORIE MAGANA Immunization Administration One Vaccine Immunization Administration One Vaccine 12408 CORIE MAGANA Immunization Admin By Intranasal / Oral Route One Vaccine Immunization Admin By Intranasal / Oral Route One Vaccine 47089 CORIE MAGANA Immunization Administration Each Additional Vaccine Immunization Administration Each Additional Vaccine 16631 CORIE MAGANA Skin Test Anergy Tuberculin Intradermal Skin Test Anergy Tuberculin Intradermal [address]Supervised Group Educational Services -Supervised Group Educational Services 34887 SPENCER CHAMBERS [facility] Audiometry Group Testing Audiometry Group Testing 80002 SPENCER CHAMBERS [facility] Spectacles Services Fitting Monofocals (Not For Aphakia) Spectacles Services Fitting Monofocals (Not For Aphakia) [phone] [facility] Ophthalmological New Patient Start Comprehensive Care Ophthalmological New Patient Start Comprehensive Care [phone] [facility] Determination Of Refractive State Determination Of Refractive State [phone] [facility] Physical Therapy: ___ Se ion Segments, 15 Minutes Each Physical Therapy: ___ Session Segments, 15 Minutes Each 66965 NNEKA BARBOSA Therex x 30 min to R ankle. [facility] Physical Therapy Mobilization Joint Physical Therapy Mobilization Joint 59790 NNEKA BARBOSA x 8 min Manual Lymphatic Drainage R ankle. [facility] Modalities Cryotherapy Cold Packs Modalities Cryotherapy Cold Packs 51758 NNEKA BARBOSA x 15 min to R ankle. [facility] Physical Therapy: ___ Se ion Segments, 15 Minutes Each Physical Therapy: ___ Session Segments, 15 Minutes Each 49560 SOPHIE ALCANTARA 35min DoD Modalities Cryotherapy Cold Packs Modalities Cryotherapy Cold Packs 22944 SOPHIE ALCANTARA 20 min DoD Ophthalmological Prior Patient Start Comprehensive Care Ophthalmological Prior Patient Start Comprehensive Care 63741 [facility], DILCIA R DoD Determination Of Refractive State Determination Of Refractive State 46243 RENZO-HO , DILCIA R DoD Spectacles Services Fitting Monofocals (Not For Aphakia) Spectacles Services Fitting Monofocals (Not For Aphakia) 21516 [facility]ENZO-CEM , DILCIA R DoD Patient education, not otherwise cla ified, non-physician provider, group, per se ion MALIHA LYONS [facility] Threshold Audiogram (Pure Tone) Automated Threshold Audiogram (Pure Tone) Automated 0208T MALIHA LYONS DoD Waiver services; not otherwise specified (NOS) BECCA HAYES [facility] No data available for this section Ambulato ry Pharmacy Social History Combined list of available smoking, tobacco, and other social history from Department of Defense and Veterans Affairs facilities. Social History Type Response Date Comment Sour e Sex Representation Male (finding) 03/25/2020 Un known Organization This section is an empty social history section. [facility] Sexual Orientation Ambula tory Pharmacy Gender identity [...] Plan No data available for this section 02/24/2025 Ambulatory Pharmacy Functional Status Combined list of recent functional and cognitive assessments recorded at Department of Defense and Veterans Affairs (VA).[facility] Functional Thurston Measurement (FIM) Scale: 1 = Total Assistance (Subject = 0% +), 2 = Maximal Assistance (Subject = 25% +), 3 = Moderate Assistance (Subject = 50% +), 4 = Minimal Assistance (Subject = 75% +), 5 = Supervision, 6 = Modified Thurston (Device), 7 = Complete Thurston (Timely, Safely). Assessment Date/Time Source Assessment Type Assessment Skill Assessment Score Assessment Details No data available for this section
--- OUTSIDE RECORDS SUMMARY | 2025-02-24 10:32 | XMS_ITS | Clinical Summary ---
Author Organization [facility] Address [address] [place] [address] Care Team Providers Care Manager Transport Name Role Phone Unavailable Primary Care Provider Unavailabl e Social History Tobacco Use Types Packs/Day Years Used Date Smoking Tobacco: Never Assessed Sex and Gender Information Value Date Recorded Sex Assigned at Not on file Legal Sex Male 4:35 PM EDT Gender Identity Not on file Sexual Orientation Not on file Plan of Treatment Not on file
--- OUTSIDE RECORDS SUMMARY | 2025-02-24 10:32 | XMS_ITS | Clinical Summary ---
Author Organization [facility] Address [address] [place] [address] Care Team Providers Care Die Engraving Supervisor Name Role Phone Unavailable Primary Care Provider Unavailabl e Source Comments [facility] is fully rolled out with thefollowing exceptions:General Clinical Research [facility] Social History Tobacco Use Types Packs/Day Years Used Date Smoking Tobacco: Never Assessed Sex and Gender Information Value Date Recorded Sex Assigned at Not on file Legal Sex Male 5:11 AM EST Gender Identity Not on file Sexual Orientation Not on file Plan of Treatment Health Maintenance Due Date Last Done Comments MMR IMMUNIZATION (1 of 1 - S tandard series) 1999 DTAP/Tdap/Td IMMUNIZATION (1 - Tdap) 2005 VARICELLA IMMUNIZATION (1 of 2 - 13+ 2-dose series) 2011 HEPATITIS B IMMUNIZATION (1 of 3 - 19+ 3-dose series) 2017 COVID-19 Vaccine (2023-2 5 season) 2024 AMB SEASONAL FLU VACCINE (#1) 04/12/2025 HIB IMMUNIZATION Aged Out No longer e ligible based on patient's age to complete this topic HPV IMMUNIZATION Aged Out No longer e ligible based on patient's age to complete this topic IPV IMMUNIZATION Aged Out No longer e ligible based on patient's age to complete this topic MCV4 IMMUNIZATION Aged Out No longer eligible based on patient's age to complete this topic MENINGOCOCCAL B VACCINE Aged Out No l onger eligible based on patient's age to complete this topic PNEUMOCOCCAL IMMUNIZATION Aged Out No longer eligible based on patient's age to complete this topic Respiratory Syncytial Virus (RSV) <20mo Aged Out No longer eligible b ased on patient's age to complete this topic
--- OUTSIDE RECORDS SUMMARY | 2025-02-24 10:32 | XMS_ITS | Clinical Summary ---
Author Organization [facility] Address [address] [place] [address] Phone Care Team Providers Care Hand Laminator Name Role Phone Unavailable Primary Care Provider Unavailabl e Allergies No known active allergies Medications Amoxicillin 500 mg Oral Tablet Take 500 mg by mouth every 8 hours. Active ibuprofen (ADVIL;MOTRIN) 800 mg Oral Tablet Take 800 mg by mouth 3 times daily. Active diclofenac (VOLTAREN) 75 mg Oral Tablet, Delayed Release (E.C.) Take 1 Tablet by mouth 2 times daily. 30 Tablet 3 Active Additional Information Patient not taking.Reason: Therapy Completed, Reported on 01/15/2023 diclofenac (VOLTAREN) 75 mg Oral Tablet, Delayed Release (E.C.) Take 1 Tablet by mouth 2 times daily. 30 Tablet 3 Active Active Problems Problem Noted Date Diagnosed Date Right ankle pain 01/04/2023 Sprain of right ankle 01/04/2023 Tear of intercostal muscle 01/04/2023 Sports physical 02/26/2012 Immunizations Immunization Administration Dates Next Due DTaP 02/04/2003, 0,1998,1997,1998 Hepatitis B, Unspecified Formulation 02/06/1999, 1998,1998 HiB, Unspecified Formulation 10/04/1999, 1998,1998,1997 IPV 02/04/2003, 8,1998,1997 MMR 02/04/2003,10/04/1999 Meningococcal Conjugate 04/25/2009 Tdap 04/25/2009 Varicella 02/06/1999 Zoster 02/19/2014 Surgical History Surgery Date Site/Laterality Comments ADENOIDECTOMY Medical History Medical History Date Comments Cataract, left eye Family History Relation Name Status Comments Brother Alive Father Alive Mother Alive Sister Alive Social History Tobacco Use Types Packs/Day Years Used Date Smoking Tobacco: Never Smokeless Tobacco: Never Tobacco Cessation:Counseling Given: Yes Alcohol Use Standard Drinks/Week Comments No 0 (1 standard drink = 0.6 oz pur e alcohol) Sexually Active Control Partners Comments Never Sex and Gender Information Value Date Recorded Sex Assigned at Not on file Legal Sex Male 1:42 PM EDT Gender Identity Not on file Sexual Orientation Not on file Obstetrics History Last Filed Vital Signs Vital Sign Reading Time Taken Comments Blood Pressure 128/82 11/14/2015 1:04 PM EDT Pulse 80 11/14/2015 1:04 PM EDT Temperature 36.7 C (98 F) 11/14/2015 1:04 PM EDT Respiratory Rate 18 11/14/2015 1:04 PM EDT Oxygen Saturation 99% 11/14/2015 1:04 PM EDT Inhaled Oxygen Concentration - - Weight 77.6 kg (171 lb) 11/14/2015 1:04 PM EDT Height 177.8 cm (5' 10 ) 11/14/2015 1:04 PM EDT Body Mass Index 24.54 11/14/2015 1:04 PM EDT Plan of Treatment Health Maintenance Due Date Last Done Comments Annual Wellness Exam 2001 DTaP/TDaP/Td (7 - Td or Tdap) 04/25/2019 04/25/2009, 02/04/2003, 10/04/1999, Additional history exists COVID-19 Vaccine (2023- season) 2024 07/17/2021, 06/04/2021 Influenza Vaccine (#1) 2025 04/25/2015 (Declin ed) Hepatitis B Vaccine Completed 02/06/1999, 1998, 1998 Meningococcal B Vaccine Aged Out No l onger eligible based on patient's age to complete this topic Pneumococcal Vaccine 0-49 Aged Out No longer eligible based on patient's age to complete this topic Insurance
== END 2025-02-23 23:59 | disposition home or self-care (01) ==
LOC: LAB.DROPOF 02-24 10:27
PROVIDERS: PCP Nurse Practitioner; Visit Provider Nurse Practitioner
DX: K21.9 Gastro-esophageal reflux disease without esophagitis (principal); I10 Essential (primary) hypertension; E55.9 Vitamin D deficiency, unspecified
CPT/HCPCS: 80053; 82043; 82306; 82570

== ENCOUNTER 2025-06-22 08:00 | Outpatient (CLI) | payer OTHER, SELFPAY ==
[2025-06-22 15:05] LABS: Hematocrit 46.5 % (42.0-52.0); Hemoglobin 16.1 g/dL (14.1-18.0); Immature Granulocytes % 0.2 %; Mean Corpuscular HGB Conc 34.6 g/dL (31.8-35.4); Mean Corpuscular Hemoglobin 31.8 pg (27.0-31.2); Mean Corpuscular Volume 91.7 fl (80-94); Nucleated Red Blood Cells % 0 %; Platelet Count 424 K/mm3 (142-424); Red Blood Count 5.07 M/mm3 (4.60-6.20); Red Cell Distribution Width-SD 40.2 fL; White Blood Count 6.5 K/mm3 (4.8-10.8)
[2025-06-22 15:50] LABS: Alanine Aminotransferase 30 U/L (12-78); Albumin Level 4.6 g/dl (3.5-5.0); Albumin/Globulin Ratio 1.4 (1.1-1.8); Alkaline Phosphatase 56 U/L (38-126); Anion Gap 12.2 mEq/L (5-15); Aspartate Amino Transferase 35 U/L (17-59); Bilirubin,Total 0.6 mg/dl (0.2-1.3); Blood Urea Nitrogen 15 mg/dl (9-20); Calcium 10.2 mg/dl (8.4-10.2); Carbon Dioxide 26 mmol/L (22.0-30.0); Chloride 100 mmol/L (98-107); Cholesterol 209 mg/dl (140-200); Creatinine,Serum 1.10 mg/dl (0.66-1.25); Estimated Glomerular Filt Rate 80 ml/min (>60); GFR (African American) 97 ML/MIN (>60); Globulin 3.2 g/dL (1.3-3.2); Glucose 94 mg/dl (74-100); HDL Cholesterol 72 mg/dl (40-60); Potassium 4.2 mmoL/L (3.5-5.1); Sodium 134 mmol/L (136-145); Total Protein,Serum 7.8 g/dl (6.3-8.2); Triglycerides 86 mg/dl (30-150)
[2025-06-22 16:09] LABS: 25-OH Vitamin D, Total 74.4 ng/mL (30-100)
[2025-06-22 16:21] LABS: Thyroid Stimulating Hormone 0.76 uIU/mL (0.465-4.68)
[2025-06-22 16:24] LABS: Hemoglobin A1C 5.1 % (4.0-6.0)
[2025-06-22 16:41] LABS: Vitamin B12 619 pg/mL (239-931)
[2025-06-22 17:31] LABS: Hepatitis C Ab Qual. W/ RFX NEGATIVE (Negative)
[2025-06-23 08:34] LABS: Hepatitis B Surface Antigen Negative (Negative)
--- OUTSIDE RECORDS SUMMARY | 2025-06-23 13:47 | XMS_ITS | Clinical Summary ---
Author Organization [facility] Address [address] [place] [address], [address] [place] [address] Care Team Providers Care Advertising Job Titles Name Role Phone Unavailable Primary Care Provider Unavailabl e Social History Tobacco Use Types Packs/Day Years Used Date Smoking Tobacco: Never Assessed Sex and Gender Information Value Date Recorded Sex Assigned at Not on file Legal Sex Male 11:38 AM EDT Gender Identity Not on file Sexual Orientation Not on file Plan of Treatment Health Maintenance Due Date Last Done Comments Depression Screen 2010 HIV screen 2013 Hepatitis C screen 02/01/2016 Hepatitis A vaccine (2 of 2 - 2-dose series) 11/04/2017 05/07/2017, 07/19/2016 Flu vaccine (#1) 03/12/2025 06/05/2018, 10/2016, 06/15/2016 COVID-19 Vaccine ( season) 2025 07/17/2021, 06/04/2021 DTaP/Tdap/Td vaccine (8 - Td or Tdap) 06/15/2026 06/15/2016, 04/25/2009, 02/04/2003, Additional history exists Hepatitis B vaccine Completed 02/06/1999, 1998, 1998 Hib vaccine Completed 10/04/1999, 07/13, 1998, Additional history exists Varicella vaccine Completed 02/19/2014, 02/06/1999 Meningococcal (ACWY) vaccine Completed 06/15/2016, 04/25/2009 Polio vaccine Completed 07/19/2016, 01/11, 1998, Additional history exists HPV vaccine (No Doses Required) Completed Meningococcal B vaccine Aged Out No l onger eligible based on patient's age to complete this topic Pneumococcal 0-49 years Vaccine Aged Out No longer eligible based on patient's age to complete this topic Insurance [employer]
--- OUTSIDE RECORDS SUMMARY | 2025-06-23 13:47 | XMS_ITS | Clinical Summary ---
Author Organization [facility] Address [address] [place] [address] Phone Care Team Providers Care Covered Button Maker Name Role Phone Unavailable Primary Care Provider [...] on file Sexual Orientation Not on file Last Filed Vital Signs Vital Sign Reading [...] 02/04/2003, 10/04/1999, Additional history exists COVID-19 Vaccine (3 - 2024- season) 2025 07/17/2021, 06/04/2021 Influenza Vaccine (#1) 2025 04/25/2015 (Declin ed) Hepatitis B Vaccine Completed 02/06/1999, 1998, 1998 Meningococcal B Vaccine Aged Out No l onger eligible based on patient's age to complete this topic Pneumococcal Vaccine 0-49 Aged Out No longer eligible based on patient's age to complete this topic Insurance
--- OUTSIDE RECORDS SUMMARY | 2025-06-23 13:47 | XMS_ITS | Clinical Summary ---
Author Organization [facility] Address [facility] [place] [address] Care Team Providers Care Professor Of Forestry Name Role Phone Unavailable Primary Care Provider Unavailabl e Source Comments [facility] is fully rolled out with thefollowing exceptions:General Clinical Research [facility] Social History Tobacco Use Types Packs/Day [...] of 3 - 19+ 3-dose series) 2017 HPV IMMUNIZATION (1 - 3-dose SCDM series) 2025 AMB SEASONAL FLU VACCINE (#1) 04/12/2025 COVID-19 Vaccine (1 - 2023-2 5 season) 2025 HIB IMMUNIZATION Aged Out No longer e [...]
--- OUTSIDE RECORDS SUMMARY | 2025-06-23 13:47 | XMS_ITS | Clinical Summary ---
Author Organization [facility] Address [address] [place] [address] Care Team Providers Care Rib Cloth Knitter Name Role Phone Unavailable Primary Care Provider [...]
== END 2025-06-22 23:59 | disposition home or self-care (01) ==
LOC: LAB.DROPOF 06-23 13:31
PROVIDERS: PCP Nurse Practitioner; Visit Provider Nurse Practitioner
DX: E55.9 Vitamin D deficiency, unspecified (principal); E66.9 Obesity, unspecified; K21.9 Gastro-esophageal reflux disease without esophagitis; I10 Essential (primary) hypertension; Z86.39 Personal history of other endocrine, nutritional and metabolic disease; Z11.59 Encounter for screening for other viral diseases
CPT/HCPCS: 80053; 80061; 82306; 82607; 83036; 84443; 85025; 86803; 87340; 87389